=== PATIENT | female | born 1945 | race Caucasian/White ===

== ENCOUNTER 2017-02-04 14:43 | Emergency (ER) | payer MEDICARE, MEDICAID ==
--- NOTE | 2017-02-04 15:26 | EDM.PDOC ---
ED HPI GENERAL MEDICAL PROBLEM - General Chief Complaint: Wound Recheck Stated Complaint: PT WOULD LIKE SEEN Time Seen by Provider: 02/04/17 15:06 Source of Information: Reports: Patient History Limitations: Reports: No Limitations - History of Present Illness INITIAL COMMENTS - FREE TEXT/NARRATIVE: HISTORY AND PHYSICAL: History of present illness: Patient is a 71-year-old female that presents to the emergency room today with complaints of pain when draining off her peritoneal drain. Patient reports she has had peritoneal cancer 3 years which she has received treatment for. Currently on hospice and was seen in [place] last week for peritoneal drain placement. States that she been draining from the site multiple times per day and had not start hurting her until yesterday. Daughter reports that they did call in [place] and states she should not be having any pain. Patient and daughter are concerned that the drain may be out of place and not draining appropriately. Patient confirms that the drain is draining 300-500 mL's each time they drain it. Denies any redness or swelling at the drainage site. No concerns of infection at this time. Daughter states "maybe I'm not draining enough her often enough". Patient does have an appointment on 02/08/2017 in [place] with her primary care doctor. Patient denies any nausea, vomiting, abdominal pain, diarrhea, fever or chills. Reports that she takes Aleve [id number] for pain and discomfort. Review of systems: As per history of present illness and below otherwise all systems reviewed and negative. Past medical history: As per history of present illness and as reviewed below otherwise noncontributory. Surgical history: As per history of present illness and as reviewed below otherwise noncontributory. Social history: No reported history of drug or alcohol abuse. Family history: As per history of present illness and as reviewed below otherwise noncontributory. Physical exam: HEENT: Atraumatic, normocephalic, pupils reactive, negative for conjunctival pallor or scleral icterus, mucous membranes moist, throat clear, neck supple, nontender, trachea midline. Lungs: Clear to auscultation, breath sounds equal bilaterally, chest nontender. Heart: S1S2, regular, negative for clicks, rubs, or JVD. Abdomen: Soft, obese, nondistended, nontender. Negative for masses or hepatosplenomegaly. Negative for costovertebral tenderness. Pelvis: Stable nontender. Genitourinary: Deferred. Rectal: Deferred. Skin: Peritoneal drain noted to right lower quadrant. No erythema, warmth, swelling noted to dressing site. Extremities: Atraumatic, negative for cords or calf pain. Neurovascular unremarkable. Neuro: Awake, alert, oriented. Cranial nerves II through XII unremarkable. Cerebellum unremarkable. Motor and sensory unremarkable throughout. Exam nonfocal. Diagnostics: KUB, 1 amp of D50 Therapeutics: Hocking juice/meal Impression: Medical screening exam Plan: 1. Continue to drain near peritoneal site and perform dressing changes as directed. Please keep in close communication with your home care nurse and primary care provider and keep your appointment on 02/08/2017 in [place]. 2. Return to the ED as needed as discussed Definitive disposition and diagnosis as appropriate pending reevaluation and review of above. - Related Data Allergies Allergy/AdvReac Type Severity Reaction Status Date / Time diphenhydramine Allergy Hives Verified 02/04/17 14:50 [From Benadryl] Penicillins Allergy Hives Verified 02/04/17 14:50 Home Meds: Home Meds Furosemide 0 mg PO DAILY 02/04/17 [History] Insulin Aspart [NovoLOG] 33 unit SUBCUT DAILY 02/04/17 [History] Insulin Glarg,Human.Rec.Analog [LantUS] 50 unit SUBCUT DAILY 02/04/17 [History] Lisinopril 5 mg PO DAILY 02/04/17 [History] Prochlorperazine [Compazine] 5 mg PO ASDIRECTED 02/04/17 [History] ED ROS GENERAL - Review of Systems Review Of Systems: ROS reveals no pertinent complaints other than HPI. ED EXAM, GENERAL - Physical Exam Exam: See Below (See dictation) Course - Vital Signs Last Recorded V/S: Last Vital Signs Temp 36.4 C 02/04/17 14:43 Pulse 77 02/04/17 14:43 Resp 18 02/04/17 14:43 BP 123/83 02/04/17 14:43 Pulse Ox 94 L 02/04/17 14:43 - Orders/Labs/Meds Orders: Active Orders 24 hr Category Date Time Status KUB [Abdomen 1V Flat] [CR] Stat Exams 02/04/17 15:19 Taken Meds: Medications Discontinued Medications Generic Name Dose Route Start Last Admin Trade Name Suzette PRN Reason Stop Dose Admin Dextrose/Water 50 ml 02/04/17 15:32 02/04/17 15:44 Dextrose 50% In Water IVPUSH 02/04/17 15:33 50 ml ONETIME ONE Administration Dextrose/Water Confirm 02/04/17 15:33 02/04/17 15:55 Dextrose 50% In Water Administered 02/04/17 15:34 Not Given Dose 50 ml .ROUTE .STK-MED ONE Departure - Departure Time of Disposition: 16:44 Disposition: Home, Self-Care 01 Clinical Impression: Encounter for medical screening examination - Discharge Information Instructions: Incision and Drainage, Care After, How to Change Your Dressing, [id number] Referrals: PCP,None [Primary Care Provider] - Forms: ED Department Discharge Additional Instructions: The following information is given to patients seen in the emergency department who are being discharged to home. This information is to outline your options for follow-up care. We provide all patients seen in our emergency department with a follow-up referral. The need for follow-up, as well as the timing and circumstances, are variable depending upon the specifics of your emergency department visit. If you don't have a primary care physician on staff, we will provide you with a referral. We always advise you to contact your personal physician following an emergency department visit to inform them of the circumstance of the visit and for follow-up with them and/or the need for any referrals to a consulting specialist. The emergency department will also refer you to a specialist when appropriate. This referral assures that you have the opportunity for followup care with a specialist. All of these measure are taken in an effort to provide you with optimal care, which includes your followup. Under all circumstances we always encourage you to contact your private physician who remains a resource for coordinating your care. When calling for followup care, please make the office aware that this follow-up is from your recent emergency room visit. If for any reason you are refused follow-up, please contact the [facility] emergency department at and asked to speak to the emergency department charge nurse. Primary Care [address] [place] [id number] 1. Continue to drain your peritoneal site and perform dressing changes as directed. [employer] may have additional supplies available. Please keep in close communication with your home care nurse and primary care provider and keep your appointment on 02/08/2017 in [place]. 2. Return to the ED as needed as discussed - My Orders Last 24 Hours: My Active Orders 02/04/17 15:19 KUB [Abdomen 1V Flat] [CR] Stat - Assessment/Plan Last 24 Hours: My Active Orders 02/04/17 15:19 KUB [Abdomen 1V Flat] [CR] Stat
[2017-02-04] MEDS ORDERED: 50% Dextrose in Water 50 ML Syringe IVPUSH ONE (15:32)
[2017-02-04] MEDS ORDERED: 50% Dextrose in Water 50 ML Syringe ONE (15:33)
[2017-02-04 18:15] VITALS: BP 123/62
--- NOTE | 2017-02-08 10:58 | CR ---
EXAM DATE: 02/04/17 PATIENT'S AGE: 71 Patient: PAWEL HARRIS Facility: [place], [place] Site . Site : 1945 Study: XRay Abdomen [id number] 4:20:25 PM Ordering Physician: Doctor Hayes Final Report: INDICATION: catheter drain/wound on right lateral side TECHNIQUE: Abdomen 5 view COMPARISON: None FINDINGS: Bowel: Nonobstructive bowel gas pattern. Soft tissues: Drainage catheter in place within the right upper quadrant. Postsurgical changes in the upper quadrants. No sign of soft tissue mass. No suspicious calcifications. Bones: Degenerative changes. IMPRESSION: Nonobstructive bowel gas pattern appearing. Dictated by Dave Luong MD @ 02/04/2017 4:26:33 PM Dictated by: Dave Luong MD @ 02/04/2017 16:26:41 (Electronic Signature) Report Signed by Proxy. DIANNE
== END 2017-02-04 16:53 | disposition home or self-care (01) ==
LOC: MW.ED 14:43
DX: Z13.818 Encounter for screening for other digestive system disorders (principal); Z88.0 Allergy status to penicillin; Z88.1 Allergy status to other antibiotic agents; Z79.4 Long term (current) use of insulin
CPT/HCPCS: 74000; 96374; 99283; J7060; 99282